=== PATIENT | male | born 1960 | race Caucasian/White ===

== ENCOUNTER → 2019-03-13 | Outpatient (CLI) | payer MEDICARE, BC ==
--- NOTE | 2019-03-13 17:56 | REP ---
Scrotal sonography: History: Left-sided testicular pain. Findings: High-resolution bilateral scrotal sonography is performed. Homogeneous testicular parenchyma is noted bilaterally. No intratesticular mass lesion is observed on either side. Right testis measures 4.4 x 2.4 x 3.8 cm. Left testicular dimensions are 4.9 x 2.5 x 3.6 cm. There is a 4 mm cyst in the head of the epididymis on the right. A small simple-appearing hydrocele is noted on the right. Testicular Doppler flow is present bilaterally. Resistive indices are measured at 0.7 on the right and 0.65 on the left. Impression: No abnormality noted. Electronically Signed by Jasvir Hsu MD 03/13/2019 06:24 P
== END ==
LOC: M RAD 16:25
PROVIDERS: ATTEND Nurse Practitioner Women's Health
DX: N50.812 Left testicular pain (principal)

== ENCOUNTER → 2023-02-07 | Outpatient (CLI) | payer MEDICARE, BC, OTHER | LOC: M PLARAD 12:51 | PROVIDERS: ATTEND Nurse Practitioner Family | DX: R93.89 Abnormal findings on diagnostic imaging of other specified body structures (principal); R93.7 Abnormal findings on diagnostic imaging of other parts of musculoskeletal system; R91.8 Other nonspecific abnormal finding of lung field | CPT/HCPCS: 78815; A9552 ==

== ENCOUNTER → 2025-02-06 | Outpatient (REF) | payer MEDICARE, BC, OTHER | LOC: M SFHCLERA 17:08 | PROVIDERS: ATTEND Student in an Organized Health Care Education/Training Program | DX: R30.0 Dysuria (principal) ==